=== PATIENT | male | born 1955 | race Caucasian/White ===

== ENCOUNTER → 2018-05-20 | Outpatient (CLI) | payer BC ==
--- NOTE | 2018-05-20 12:20 | Diagnostic Imaging Report ---
Indication: Chronic low back pain Technique: Sagittal T1 and T2 fast spin echo, sagittal STIR, axial T1 and T2 fast spin-echo images of the lumbar spine Comparison: none Findings: Bony alignment is normal. There is mild degenerative disc narrowing at T12-L1, L3-4, and L5-S1. There are multiple small focal intravertebral disc herniations into multiple endplates. There is mild multilevel disc desiccation. Vertebral body marrow signal is preserved. Vertebral body heights are preserved. At L1-2, there is mild circumferential annular bulge. This does not result in any significant spinal stenosis. The neural foramina are preserved at this level. There is mild thickening of the posterior longitudinal ligament which does not result in any spinal canal compromise. At L2-3, there is mild circumferential annular bulge. This results in borderline narrowing of the spinal canal. There is also mild bilateral facet arthrosis. The right neural foramen is preserved. There is minimal narrowing of the left neural foramen due to facet arthrosis and the bulging disc. At L3-4, there is mild circumferential annular bulge which does not result in any significant compromise of the spinal canal. The bulging discs may result in minimal compromise of the bilateral neural foramina. At L4-5, there is circumferential annular bulge. This results in borderline narrowing of the spinal canal. The bulging disc may result in minimal compromise of the bilateral neural foramina. There is mild bilateral facet arthrosis at this level. At L5-S1, there is minimal circumferential annular bulge. This does not result in any significant compromise of the spinal canal or neural foramina. There is mild bilateral facet arthrosis at this level The included extraspinal soft tissues are unremarkable. Impression: No acute bony trauma Mild degenerative changes as described
== END | disposition home or self-care (01) ==
LOC: MRI 11:11
DX: M54.9 Dorsalgia, unspecified (principal); G89.29 Other chronic pain
CPT/HCPCS: 72148

== ENCOUNTER 2018-07-02 10:40 | Outpatient (CLI) | payer BC ==
--- NOTE | 2018-07-02 15:53 | Diagnostic Imaging Report ---
Indication: Left wrist pain Technique: MRI of the left wrist obtained in a 1.5 Alison magnet. Pulse sequences obtained include multiplanar proton fast spin-echo with and without fat saturation, T1 fast spin-echo and T2 fast spin-echo with fat saturation.. Findings: There is mixed heterogeneous signal demonstrated in the region of the scapholunate ligament. The volar component of the ligament is not visualized and presumably degenerated with mixed, heterogeneous signal in the expected location of the volar component of the SLL. A portion of the dorsal scapholunate ligament is visualized on axial images attached to the lunate, but is also torn. There is a more than expected widened distance between the scaphoid and lunate bone. Subchondral cystic changes are noted at the scaphoid end of the lunate and within the lunate aspect of the scaphoid. In addition, there is a probable mild dorsal tilt of the lunate suggestive of functional disability or scapholunate instability. Subchondral cystic changes are also noted within the triquetrum and hamate likely degenerative in nature. There is no ganglion cyst or joint effusion. The triangle fibrocartilage is present and intact. Bone marrow signal is otherwise normal. Alignment of the wrist is otherwise normal. Contents of the carpal tunnel appear unremarkable. Extensor tendons and tendons about the thumb appear normal. IMPRESSION: Complete tear of the scapholunate ligament with the widened distance between the scapholunate bones (Mikel Teddy sign) and subchondral cystic changes. 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
--- NOTE | 2018-07-02 16:10 | Diagnostic Imaging Report ---
Indication: Shoulder pain Technique: MRI of the left shoulder obtained in a 1.5 Alison magnet. Pulse sequences obtained include axial and coronal proton fast spin-echo with fat saturation, sagittal T1 fast spin-echo, sagittal and coronal T2 fast spin-echo with fat saturation. Findings: The rotator cuff is intact. There is no evidence of a rotator cuff tear. There is some moderate hypertrophy of the acromioclavicular joint which shows extensive subchondral signal abnormality. Bone marrow signal is essentially normal otherwise. The glenoid labrum is grossly unremarkable although not evaluated well on this examination. There is little to no joint fluid. There is a prominence of labral recess. The long head of the biceps tendon is normal in appearance. The bicipital attachment is unremarkable. IMPRESSION: No evidence of rotator cuff tear or internal derangement. Moderate arthropathy of the acromioclavicular joint
== END 2018-07-02 12:40 | disposition home or self-care (01) ==
LOC: MRI 10:40
DX: S63.512A Sprain of carpal joint of left wrist, initial encounter (principal); M12.812 Other specific arthropathies, not elsewhere classified, left shoulder